=== PATIENT | male | born 1945 | race Caucasian/White ===

== ENCOUNTER 2019-08-01 05:41 | Day surgery (SDC) | payer MEDICARE, BC ==
[2019-07-31 12:19] LABS: BASOPHILS # (AUTO) 0.1 X10'3 (0-0.2); BASOPHILS % (AUTO) 0.8 % (0-1); EOSINOPHILS # (AUTO) 0.1 X10'3 (0-0.9); EOSINOPHILS % (AUTO) 1.8 % (0-6); HEMATOCRIT 44.3 % (42.0-52.0); HEMOGLOBIN 15.2 g/dl (14.0-17.9); LYMPHOCYTES # (AUTO) 1.6 X10'3 (1.1-4.8); LYMPHOCYTES % (AUTO) 22.5 % (21-51); MEAN CORPUSCULAR HEMOGLOBIN 31.4 PG (27.0-31.0); MEAN CORPUSCULAR HGB CONC 34.2 g/dL (33.0-36.5); MEAN CORPUSCULAR VOLUME 91.9 FL (78-98); MEAN PLATELET VOLUME 9.1 FL (7.4-10.4); MONOCYTES # (AUTO) 0.4 X10'3 (0-0.9); MONOCYTES % (AUTO) 5.5 % (2-12); NEUTROPHILS # (AUTO) 5.1 X10'3 (1.8-7.7); NEUTROPHILS % (AUTO) 69.4 % (42-75); PLATELET COUNT 207 X10'3 (140-440); RED BLOOD COUNT 4.82 X10'6 (4.70-6.10); RED CELL DISTRIBUTION WIDTH 13.5 % (11.5-14.5); WHITE BLOOD COUNT 7.3 X10'3 (4.5-11.0)
[2019-07-31 12:29] LABS: PARTIAL THROMBOPLASTIN TIME 30 SECONDS (22-32)
[2019-07-31 12:31] LABS: ANION GAP 6 (8-16); BLOOD UREA NITROGEN 14 MG/DL (7-18); BUN/CREATININE RATIO 13.6 (5.4-32.0); CALCIUM 8.7 MG/DL (8.5-10.1); CHLORIDE 105 MMOL/L (99-107); CREATININE 1.03 MG/DL (0.60-1.10); GLUCOSE 123 MG/DL (70-104); POTASSIUM 3.9 MMOL/L (3.5-5.1); SODIUM 140 MMOL/L (135-145); TOTAL CARBON DIOXIDE 28.6 MMOL/L (24-32); eGFR 71 ML/MIN
[2019-08-01] VITALS (9 sets, daily range): BP systolic 118–153; BP diastolic 57–77
[~2019-08-01] VITALS: Ht 182.9 cm; Wt 95.1 kg
[2019-08-01] MEDS ORDERED: diphenhydrAMINE 25mg capsule PO PRN (06:00)
[2019-08-01] MEDS ORDERED: LORazepam 0.5 MG tablet PO PRN (06:00)
[2019-08-01] MEDS ORDERED: normal saline 1,000 ML IV SCH (06:00)
[2019-08-01] MEDS ORDERED: LIDOcaine/PRILOcaine 5gm cream TP ONE (06:00)
[2019-08-01] MEDS ORDERED: ALBU8HFA PO (06:46)
[2019-08-01] MEDS ORDERED: nitroGLYCERIN-Tridil 50MG/D5W 250 ML IV ONE (07:38)
[2019-08-01] MEDS ORDERED: fentaNYL/PF 50MCG/1 ML 2ML syringe ONE (07:39)
[2019-08-01] MEDS ORDERED: iohexol 350MG/ML 100ml bottle IV ONE (07:39)
[2019-08-01] MEDS ORDERED: iohexol 350 MG/ML 50ML vial IV ONE (07:39)
[2019-08-01] MEDS ORDERED: midazolam 2 mg/2 ml injection ONE (07:39)
[2019-08-01] MEDS ORDERED: heparin 1,000unit/ml 10ml vial 10 ML ONE (07:39)
[2019-08-01] MEDS ORDERED: verapamil 2.5 mg/ml inj IV ONE (07:39)
[2019-08-01] MEDS ORDERED: atropine 0.1mg/ml 10ml syringe ONE (08:29)
[2019-08-01] MEDS ORDERED: normal saline 1000ml 1,000 ML IV SCH (09:25)
--- NOTE | 2019-08-01 09:25 | NUR ---
Pt returned to floor with NS running, increased rate to 150ml/hr pre order.
--- NOTE | 2019-08-01 10:20 | NUR ---
pt ambulated to bathroom, denies sob, denies cp. pt denies dizziness. pt voided. vasc band in place on rt wrist, CD&I.
== END 2019-08-01 14:10 | disposition home or self-care (01) ==
LOC: SSTAY O 05:41
PROVIDERS: ATTEND Internal Medicine Cardiovascular Disease
DX: R94.39 Abnormal result of other cardiovascular function study (principal); I25.10 Atherosclerotic heart disease of native coronary artery without angina pectoris; J45.909 Unspecified asthma, uncomplicated; N40.0 Benign prostatic hyperplasia without lower urinary tract symptoms; I47.1 Supraventricular tachycardia; Z85.46 Personal history of malignant neoplasm of prostate; Z90.79 Acquired absence of other genital organ(s); Z87.891 Personal history of nicotine dependence; Z88.2 Allergy status to sulfonamides; Z88.8 Allergy status to other drugs, medicaments and biological substances; Z79.899 Other long term (current) drug therapy; Z79.01 Long term (current) use of anticoagulants
CPT/HCPCS: 36415; 80048; 85025; 85610; 85730; 93005; 93458; 99152; 99153; C1769; C1894; J0461; J1644; J2250; J3010; J7030; Q0163; Q9967; A5120; A6258; J3490